=== PATIENT | female | born 1990 | race Caucasian/White ===

== ENCOUNTER 2017-11-09 17:05 | Outpatient (CLI) | payer MEDICAID ==
[2017-11-09 18:13] LABS: ADD UMIC YES; UR ASCORBIC ACID 40 mg/dL (NEGATIVE); UR BILIRUBIN (Dip) NEGATIVE (NEGATIVE); UR BLOOD (Dip) 1+ mg/dL (NEGATIVE); UR CLARITY CLEAR (CLEAR); UR COLOR YELLOW (YELLOW); UR GLUCOSE (Dip) NEGATIVE (NEGATIVE); UR KETONES (Dip) NEGATIVE (NEGATIVE); UR LEUKOCYTE ESTERASE (Dip) NEGATIVE Leu/ul (NEGATIVE); UR NITRITE (Dip) NEGATIVE (NEGATIVE); UR RBC 0 /HPF (0-5); UR SPECIFIC GRAVITY (Dip) 1.018 (1.003-1.030); UR SQUAMOUS EPITHELIAL CELL FEW /HPF (FEW); UR TOTAL PROTEIN (Dip) NEGATIVE (NEGATIVE); UR UROBILINOGEN (Dip) NEGATIVE (NEGATIVE); UR WBC 1 /HPF (0-5)
== END 2017-11-09 19:05 | disposition home or self-care (01) ==
LOC: OBT 17:05 → L-D 17:07 → OBT 19:05
DX: O26.892 Other specified pregnancy related conditions, second trimester (principal); Z3A.24 24 weeks gestation of pregnancy; R10.2 Pelvic and perineal pain
CPT/HCPCS: 76817; 81001; 82731

== ENCOUNTER 2018-03-04 03:10 | Inpatient (IN) | payer MEDICAID ==
[2018-03-04] MEDS ORDERED: LACTATED RINGER'S 1,000 ML IV (03:58)
[2018-03-04] MEDS ORDERED: BUTORPHANOL 2 MG INJ IV (04:00)
[2018-03-04] MEDS ORDERED: OXYTOCIN 30 UNITS/LR 500 ML IV ×2 (04:00→18:30)
[2018-03-04] MEDS ORDERED: MISOPROSTOL 200 MCG TAB PR ×2 (04:00→18:30)
[2018-03-04] MEDS ORDERED: CARBOPROST 250 MCG INJ IM ×2 (04:00→18:30)
[2018-03-04] MEDS ORDERED: METHYLERGONOVINE 0.2 MG INJ IM ×2 (04:00→18:30)
[2018-03-04 04:59] LABS: ADD MAN DIFF? NO
[2018-03-04 05:05] LABS: BASOPHIL # 0.1 10^3/ul (0.0-0.1); BASOPHILS % 0.7 % (0.0-2.0); EOSINOPHILS # 1.2 10^3/ul (0.0-0.5); EOSINOPHILS % 10.7 % (0.0-7.0); HEMATOCRIT 36.9 % (37.0-47.0); HEMOGLOBIN 12.3 g/dl (12.0-16.0); LYMPHOCYTES # 2.3 10^3/ul (0.8-2.9); LYMPHOCYTES % 20.3 % (15.0-51.0); MEAN CORPUSCULAR HEMOGLOBIN 30.4 pg (29.0-33.0); MEAN CORPUSCULAR HGB CONC 33.3 g/dl (32.0-37.0); MEAN CORPUSCULAR VOLUME 91.3 fl (82.0-101.0); MEAN PLATELET VOLUME 10.6 fl (7.4-10.4); MONOCYTE # 0.7 10^3/ul (0.3-0.9); MONOCYTES % 6.2 % (0.0-11.0); NEUTROPHIL # 6.9 10^3/ul (1.6-7.5); NEUTROPHILS % 61.1 % (39.0-77.0); PLATELET COUNT 277 10^3/UL (140-415); RED BLOOD COUNT 4.04 10^6/ul (4.20-5.40); RED CELL DISTRIBUTION WIDTH 14.6 % (11.5-14.5)
[2018-03-04 05:05] LABS: WHITE BLOOD COUNT 11.3 10^3/ul (4.8-10.8)
[2018-03-04] MEDS: LACTATED RINGER'S 1,000 ML IV ×2 (05:05→11:15)
[2018-03-04 05:36] LABS: INR 0.97
[2018-03-04 05:37] LABS: PARTIAL THROMBOPLASTIN TIME 26.9 Sec (25.0-35.0)
[2018-03-04 05:47] LABS: HEPATITIS B SURFACE ANTIGEN NEGATIVE (NEGATIVE)
[2018-03-04] MEDS: OXYTOCIN 30 UNITS/LR 500 ML IV ×2 (12:52→13:05)
[2018-03-04] MEDS: LIDOCAINE 1% (MPF) 30 ML INJ INJ (13:02)
[2018-03-04] MEDS: IBUPROFEN 600 MG TAB PO ×2 (13:59→23:30)
[2018-03-04 15:30] LABS: RAPID PLASMA REAGIN NONREACTIVE (NR)
[2018-03-04] MEDS ORDERED: ZOLPIDEM 5 MG TAB PO (18:30)
[2018-03-04] MEDS ORDERED: OXYCODONE/ASPIRIN (4.88/325) TAB PO (18:30)
[2018-03-04] MEDS: LANOLIN 7 GM TUBE TOP (18:46)
[2018-03-04] MEDS: WITCH HAZEL/GLYCERIN PAD PR (18:48)
[2018-03-04] MEDS: BENZOCAINE 20% 56 ML SPRAY TOP (18:48)
[2018-03-04] MEDS: OXYCODONE/ASPIRIN (4.88/325) TAB PO (19:47)
[2018-03-04] MEDS: SENNA/DOCUSATE NA (8.6MG/50MG) TAB PO (21:08)
[2018-03-05] MEDS: IBUPROFEN 600 MG TAB PO ×3 (05:31→18:19)
[2018-03-05 09:11] LABS: ADD MAN DIFF? NO
[2018-03-05 09:17] LABS: BASOPHIL # 0.1 10^3/ul (0.0-0.1); BASOPHILS % 0.6 % (0.0-2.0); EOSINOPHILS # 0.9 10^3/ul (0.0-0.5); HEMOGLOBIN 11.9 g/dl (12.0-16.0); LYMPHOCYTES # 2.1 10^3/ul (0.8-2.9); LYMPHOCYTES % 16.6 % (15.0-51.0); MEAN CORPUSCULAR HEMOGLOBIN 30.2 pg (29.0-33.0); MEAN CORPUSCULAR HGB CONC 33.1 g/dl (32.0-37.0); MEAN CORPUSCULAR VOLUME 91.4 fl (82.0-101.0); MEAN PLATELET VOLUME 10.6 fl (7.4-10.4); MONOCYTE # 0.7 10^3/ul (0.3-0.9); MONOCYTES % 5.5 % (0.0-11.0); NEUTROPHIL # 8.7 10^3/ul (1.6-7.5); NEUTROPHILS % 69.7 % (39.0-77.0); PLATELET COUNT 270 10^3/UL (140-415); RED BLOOD COUNT 3.94 10^6/ul (4.20-5.40); RED CELL DISTRIBUTION WIDTH 14.6 % (11.5-14.5)
[2018-03-05 09:17] LABS: WHITE BLOOD COUNT 12.4 10^3/ul (4.8-10.8)
[2018-03-05] MEDS: SENNA/DOCUSATE NA (8.6MG/50MG) TAB PO ×2 (09:46→21:33)
[2018-03-06] MEDS: SENNA/DOCUSATE NA (8.6MG/50MG) TAB PO (08:47)
[2018-03-06] MEDS: DIPHTH/TET/ACEL PERTUSS (ADULT) 0.5 ML VIAL IM* (09:00)
[2018-03-06] MEDS: IBUPROFEN 600 MG TAB PO ×3 (12:00→12:46)
== END 2018-03-06 16:30 | disposition home or self-care (01) | DRG 775 ==
LOC: OBT 03:10 → L-D 03:10 → OBT 04:00 → L-D 04:00 → PP1 17:17
PROVIDERS: Obstetrics & Gynecology
PROC: 10E0XZZ Delivery of Products of Conception, External Approach (ICD-10-PCS; principal; 2018-03-04)
PROC: 3E033VJ Introduction of Other Hormone into Peripheral Vein, Percutaneous Approach (ICD-10-PCS; 2018-03-04)
DX: O48.0 Post-term pregnancy (principal); Z3A.40 40 weeks gestation of pregnancy; Z37.0 Single live birth
CPT/HCPCS: 85025; 85610; 85730; 86592; 86850; 86900; 86901; 87340